=== PATIENT | male | born 1965 | race Caucasian/White ===

== ENCOUNTER → 2024-07-17 14:26 | Outpatient (BNVA) | payer OTHER, SELFPAY | PROVIDERS: Visit Provider Podiatrist Foot & Ankle Surgery | DX: M79.671 Pain in right foot (principal); B35.3 Tinea pedis; M19.071 Primary osteoarthritis, right ankle and foot; L60.3 Nail dystrophy; M76.821 Posterior tibial tendinitis, right leg | CPT/HCPCS: 73630; 99203 ==

== ENCOUNTER → 2024-08-10 13:51 | Outpatient (BNVA) | payer OTHER, SELFPAY | PROVIDERS: Visit Provider Podiatrist Foot & Ankle Surgery | DX: B35.1 Tinea unguium (principal) | CPT/HCPCS: 36415; 80053 ==

== ENCOUNTER → 2024-09-14 16:17 | Outpatient (BNVA) | payer OTHER, SELFPAY | PROVIDERS: PCP Nurse Practitioner Family; Visit Provider Podiatrist Foot & Ankle Surgery | DX: B35.1 Tinea unguium (principal) | CPT/HCPCS: 80053; 99213 ==